=== PATIENT | male | born 1960 | race Caucasian/White ===

== ENCOUNTER 2018-03-30 15:30 | Emergency (ER) | payer OTHER ==
--- NOTE | 2018-03-30 15:56 | EDPHYS ---
Physician Documentation [facility] Name: Trace Jackson Sr Age: 58 yrs Sex: Male : 1960 Arrival Date: 03/30/2018 Time: 15:34 Bed 25 Private MD: None, None ED Physician Donte Christy HPI: 03/30 16:25 This 58 yrs old Male presents to ER via Ambulatory with complaints of Arm kb Swelling. 16:25 The patient or guardian complains of swelling. The complaints affect the left forearm. kb Context: The problem was sustained at the hospital, resulted from iv infiltration during CT. Onset: The symptoms/episode began/occurred yesterday. Treatment prior to arrival includes: no previous treatment. Modifying factors: The symptoms are alleviated by nothing. the symptoms are aggravated by nothing. Associated signs and symptoms: Pertinent positives: swelling, Pertinent negatives: decreased range of motion, deformity, erythema, fever, nausea, numbness, pain, tingling, vomiting, warmth, weakness. Severity of symptoms: At their worst the symptoms were moderate, in the emergency department the symptoms are unchanged. The patient has not experienced similar symptoms in the past. The patient has been recently seen by a physician:. Historical: - Allergies: 15:41 No Known Allergies; aj - Home Meds: 15:41 None [Active]; aj - PMHx: 15:41 prostate cancer; aj - PSHx: 15:41 Hernia repair; aj - Immunization history:: Adult Immunizations up to date. - Social history:: Smoking status: Patient uses tobacco products, smokes one pack cigarettes per day. Patient uses alcohol, on a daily basis. street drugs, marijuana. - Ebola Screening: : Patient negative for fever greater than or equal to 101.5 degrees Fahrenheit, and additional compatible Ebola Virus Disease symptoms Patient denies exposure to infectious person Patient denies travel to an Ebola-affected area in the 21 days before illness onset No symptoms or risks identified at this time. ROS: 16:23 Constitutional: Negative for fever, chills, and weight loss, Cardiovascular: Negative kb for chest pain, palpitations, and edema, Respiratory: Negative for shortness of breath, cough, wheezing, and pleuritic chest pain, Abdomen/GI: Negative for abdominal pain, nausea, vomiting, diarrhea, and constipation, Back: Negative for injury and pain, : Negative for injury, bleeding, discharge, and swelling, Skin: Negative for injury, rash, and discoloration, Neuro: Negative for headache, weakness, numbness, tingling, and seizure. 16:23 MS/extremity: Positive for swelling, of the left arm. Exam: 16:23 Constitutional: This is a well developed, well nourished patient who is awake, alert, kb and in no acute distress. Head/Face: Normocephalic, atraumatic. Chest/axilla: Normal chest wall appearance and motion. Nontender with no deformity. No lesions are appreciated. Cardiovascular: Regular rate and rhythm with a normal S1 and S2. No gallops, murmurs, or rubs. Normal PMI, no JVD. No pulse deficits. Respiratory: Lungs have equal breath sounds bilaterally, clear to auscultation and percussion. No rales, rhonchi or wheezes noted. No increased work of breathing, no retractions or nasal flaring. Abdomen/GI: Soft, non-tender, with normal bowel sounds. No distension or tympany. No guarding or rebound. No evidence of tenderness throughout. Skin: Warm, dry with normal turgor. Normal color with no rashes, no lesions, and no evidence of cellulitis. Neuro: Awake and alert, GCS 15, oriented to person, place, time, and situation. Cranial nerves II-XII grossly intact. Motor strength 5/5 in all extremities. Sensory grossly intact. Cerebellar exam normal. Normal gait. 16:23 Musculoskeletal/extremity: Extremities: grossly normal except: noted in the left arm: swelling, ROM: intact in all extremities, Circulation is intact in all extremities. Sensation intact. Vital Signs: 15:41 BP 136 / 90; Pulse 71; Resp 19; Temp 97.6; Pulse Ox 97% on R/A; Weight 81.65 kg; Height aj 5 ft. 9 in. (175.26 cm); 15:41 Body Mass Index 26.58 (81.65 kg, 175.26 cm) aj MDM: 15:45 Patient medically screened. kb 16:23 Data reviewed: vital signs, nurses notes. Data interpreted: Pulse oximetry: on room air kb is 97 %. Interpretation: normal. Counseling: I had a detailed discussion with the patient and/or guardian regarding: the historical points, exam findings, and any diagnostic results supporting the discharge/admit diagnosis, the need for outpatient follow up, a family practitioner, to return to the emergency department if symptoms worsen or persist or if there are any questions or concerns that arise at home. Administered Medications: No medications were administered Disposition: 17:52 Co-signature as Attending Physician, Donte Christy MD. rn Disposition: 03/30/18 15:55 Discharged to Home. Impression: Left arm swelling s/p iv infiltration. - Condition is Stable. - Discharge Instructions: IV Infiltration, [id number]. - Medication Reconciliation Form, Thank You Letter, Antibiotic Education, Prescription Opioid Use form. - Follow up: Private Physician; When: 2 - 3 days; Reason: Recheck today's complaints, Continuance of care, Re-evaluation by your physician. Follow up: Emergency Department; When: As needed; Reason: Worsening of condition. Signatures: Mary Lou Medrano, SHAKE SPLITTER-C SHAKE SPLITTER-CkMary Gardiner RN Donte Zaldivar MD MD rn Lowrey, Tammy, RN RN tl3 Corrections: (The following items were deleted from the chart) 16:26 15:55 03/30/2018 15:55 Discharged to Home. Impression: Left arm swelling s/p iv tl3 infiltration. Condition is Stable. Forms are Medication Reconciliation Form, Thank You Letter, Antibiotic Education, Prescription Opioid Use. Follow up: Private Physician; When: 2 - 3 days; Reason: Recheck today's complaints, Continuance of care, Re-evaluation by your physician. Follow up: Emergency Department; When: As needed; Reason: Worsening of condition. kb
--- NOTE | 2018-03-30 15:56 | ER ---
Nurse's Notes [facility] Name: Trace Jackson Sr Age: 58 yrs Sex: Male : 1960 Arrival Date: 03/30/2018 Time: 15:34 Bed 25 Private MD: None, None Diagnosis: Left arm swelling s/p iv infiltration Presentation: 03/30 15:39 Presenting complaint: Patient states: Left arm swelling after IV infiltration during CT aj yesterday. Transition of care: patient was not received from another setting of care. Onset of symptoms was March 29, 2018. Risk Assessment: Do you want to hurt yourself or someone else? Patient reports no desire to harm self or others. Initial Sepsis Screen: Does the patient meet any 2 criteria? No. Patient's initial sepsis screen is negative. Does the patient have a suspected source of infection? No. Patient's initial sepsis screen is negative. Care prior to arrival: None. 15:39 Method Of Arrival: Ambulatory aj 15:39 Acuity: FATUMA 4 aj Triage Assessment: 15:41 General: Appears in no apparent distress. comfortable, Behavior is calm, cooperative, aj appropriate for age. Pain: Complains of pain in left arm. Neuro: Level of Consciousness is awake, alert, obeys commands, Oriented to person, place, time, situation, Appropriate for age. Respiratory: Airway is patent Respiratory effort is even, unlabored, Respiratory pattern is regular, symmetrical. Derm: Skin is intact, is healthy with good turgor, Skin is pink, warm \T\ dry. normal. Musculoskeletal: Swelling present in left arm. Historical: - Allergies: 15:41 No Known Allergies; aj - Home Meds: 15:41 None [Active]; aj - PMHx: 15:41 prostate cancer; aj - PSHx: 15:41 Hernia repair; aj - Immunization history:: Adult Immunizations up to date. - Social history:: Smoking status: Patient uses tobacco products, smokes one pack cigarettes per day. Patient uses alcohol, on a daily basis. street drugs, marijuana. - Ebola Screening: : Patient negative for fever greater than or equal to 101.5 degrees Fahrenheit, and additional compatible Ebola Virus Disease symptoms Patient denies exposure to infectious person Patient denies travel to an Ebola-affected area in the 21 days before illness onset No symptoms or risks identified at this time. Vital Signs: 15:41 BP 136 / 90; Pulse 71; Resp 19; Temp 97.6; Pulse Ox 97% on R/A; Weight 81.65 kg; Height aj 5 ft. 9 in. (175.26 cm); 15:41 Body Mass Index 26.58 (81.65 kg, 175.26 cm) aj ED Course: 15:34 Patient arrived in ED. mr 15:35 None, None is Private Physician. mr 15:40 Triage completed. aj 15:41 Arm band placed on right wrist. Patient placed in an exam room. aj 15:45 Mary Lou Medrano FNP-C is [facility]. kb 15:45 Donte Christy MD is Attending Physician. kb Administered Medications: No medications were administered Outcome: 15:55 Discharge ordered by . kb 16:26 Patient left the ED. tl3 Signatures: Mary Lou Medrano FNP-C FNP-Mary Rodarte, Xuan Lambert RN, Tammy, RN RN tl3
== END 2018-03-30 16:26 | disposition home or self-care (01) ==
LOC: ER 15:30
DX: M79.89 Other specified soft tissue disorders (principal); F17.210 Nicotine dependence, cigarettes, uncomplicated; Z85.46 Personal history of malignant neoplasm of prostate
CPT/HCPCS: 99281

== ENCOUNTER 2021-10-23 06:04 | Emergency (ER) | payer OTHER, SELFPAY ==
--- OUTSIDE RECORDS SUMMARY | 2021-10-23 06:08 | XMS REPORT | Continuity of Care Document ---
:1960 Author Organization [facility] t Address [address] [place] [address] [address] [place] [address] Care Team Providers Name Role Phone Unavailable Unavailable Unavailable Problems This patient has no known problems. Allergies, Adverse Reactions, Alerts This patient has no known allergies or adverse reactions. Medications This patient has no known medications. Procedures This patient has no known procedures. Results This patient has no known results.
[2021-10-23] MEDS ORDERED: MORPHINE 4 MG/ML SYR ONE (06:45)
[2021-10-23] MEDS ORDERED: dexAMETHasone 10 MG/ML VIAL ONE (06:45)
[2021-10-23] MEDS ORDERED: ONDANSETRON 4 MG/2 ML VIAL ONE (06:45)
[2021-10-23] MEDS ORDERED: NA CHLORIDE 0.9% 1,000 ML ONE (06:46)
[2021-10-23 06:48] LABS: Absolute Lymphocytes (CBC) 1.7 K/uL (0.7-4.9); Hematocrit 49.1 % (39.6-49.0); Lymphocytes % 19.2 % (15.3-44.8); MPV 7.1 fL (7.6-11.3); RBC Red Blood Cell Count 5.27 M/uL (4.33-5.43)
[2021-10-23 06:57] LABS: Protime INR 0.87
[2021-10-23 07:02] LABS: Potassium 4.4 mmol/L (3.5-5.1)
--- NOTE | 2021-10-23 07:54 | RAD REPORT ---
EXAM DESCRIPTION: CT - Head Brain Wo Cont - 10/23/2021 7:26 am CLINICAL HISTORY: Headache COMPARISON: 2010 TECHNIQUE: Computed axial tomography of the head was obtained. IV contrast was not requested. All CT scans are performed using dose optimization technique as appropriate and may include automated exposure control or mA/KV adjustment according to patient size. FINDINGS: An intracranial bleed is not seen . Several air bubbles within the right cavernous sinus The ventricles are normal in caliber. No significant hypodense areas within the brain visualized No extra-axial fluid collection is noted. Fluid within the sinuses/ mastoids is not seen. Mild to moderate chronic sphenoid and ethmoid sinusit is IMPRESSION: Several air bubbles within the right cavernous sinus. If the patient has had recent IV a ccess this probably is iatrogenic and not significant. Trauma and infection can also result in this a ppearance Mild to moderate chronic sinusitis
--- NOTE | 2021-10-23 07:55 | RAD REPORT ---
EXAM DESCRIPTION: CTHead angio10/23/2021 7:26 am CLINICAL HISTORY: Headache COMPARISON: None TECHNIQUE: CT angiogram of the head was obtained. 3D MIPS reconstruction performed. All CT scans are performed using dose optimization technique as appropriate and may include automated exposure control or mA/KV adjustment according to patient size. FINDINGS: The basilar, internal carotid, anterior cerebral, middle cerebral and posterior cerebral a rteries are normal caliber. An aneurysm is not seen. A significant stenosis is not noted. IMPRESSION: No significant abnormality is displayed
[2021-10-23] MEDS ORDERED: AMLODIPINE 5 MG TAB ONE (08:08)
[2021-10-23] MEDS ORDERED: AMOX/K CLAV 875 MG TAB ONE (08:30)
[2021-10-23] MEDS ORDERED: CEFTRIAXONE 2000 MG/VIAL ONE (08:31)
--- NOTE | 2021-10-23 09:02 | ER ---
Nurse's Notes [facility] Name: Trace Jackson Sr Age: 61 yrs Sex: Male : 1960 Arrival Date: 10/23/2021 Time: 06:09 Bed 2 Private MD: Diagnosis: Headache;Essential (primary) hypertension;Chronic sinusitis, unspecified;Acute sphenoidal sinusitis Presentation: 10/23 06:18 Chief complaint: Patient states: "I've had this headache for 2-3 weeks and I can't get lp1 it to go away with Tylenol or Ibuprofen at home"; Patient reports pain localized to right sabianist and right eye, with intermittent dizziness. Coronavirus screen: At this time, the client does not indicate any symptoms associated with coronavirus-19. Ebola Screen: No symptoms or risks identified at this time. Initial Sepsis Screen: Does the patient meet any 2 criteria? No. Patient's initial sepsis screen is negative. Does the patient have a suspected source of infection? No. Patient's initial sepsis screen is negative. Risk Assessment: Do you want to hurt yourself or someone else? Patient reports no desire to harm self or others. Onset of symptoms was October 23, 2021. 06:18 Method Of Arrival: Ambulatory lp1 06:18 Acuity: FATUMA 3 lp1 Triage Assessment: 06:30 Headache History: Denies prior headaches. General: Appears in no apparent distress. kd3 Behavior is calm, cooperative. Pain: Pain currently is 10 out of 10 on a pain scale. Pain began gradually, Also complains of nausea, inability to work. 06:31 Neuro: Level of Consciousness is awake, alert, obeys commands, Oriented to person, kd3 place, time, situation. Cardiovascular: Patient's skin is warm and dry. Respiratory: Airway is patent Trachea midline Respiratory effort is even, unlabored, Respiratory pattern is regular. Historical: - Allergies: 06:20 No Known Allergies; lp1 - Home Meds: 06:20 None [Active]; lp1 - PMHx: 06:20 Prostate Cancer; lp1 - PSHx: 06:20 Hernia repair; lp1 - Immunization history:: Adult Immunizations up to date. - Social history:: Smoking status: Patient reports the use of cigarette tobacco products, smokes one pack cigarettes per day. - Family history:: not pertinent. - Hospitalizations: : No recent hospitalization is reported. Screenin:30 Abuse screen: Denies threats or abuse. Denies injuries from another. Nutritional kd3 screening: No deficits noted. Tuberculosis screening: No symptoms or risk factors identified. Fall Risk IV access (20 points). Assessment: 06:31 Pain: Complains of pain in headache. kd3 07:30 General: Appears in no apparent distress. comfortable, Behavior is calm, cooperative, ap3 appropriate for age. Neuro: Level of Consciousness is awake, alert, obeys commands, Oriented to person, place, time, situation, Appropriate for age Moves all extremities. Gait is steady, Speech is normal, Facial symmetry appears normal. Cardiovascular: Patient's skin is warm and dry. 07:30 Respiratory: Airway is patent Respiratory effort is even, unlabored, Respiratory ap3 pattern is regular, symmetrical. 07:32 Reassessment: No changes from previously documented assessment. Patient and/or family ap3 updated on plan of care and expected duration. Pain level reassessed. 08:22 Reassessment: No changes from previously documented assessment. Patient and/or family ap3 updated on plan of care and expected duration. Pain level reassessed. Patient is alert, oriented x 3, equal unlabored respirations, skin warm/dry/pink. Vital Signs: 06:18 BP 141 / 108; Pulse 83; Resp 18; Temp 98.2(O); Pulse Ox 98% on R/A; Weight 90.72 kg lp1 (R); Height 5 ft. 9 in. (175.26 cm); Pain 7/10; 07:32 BP 160 / 110; Pulse 78; Pulse Ox 98% on R/A; ap3 08:20 BP 144 / 93; Pulse 72; Pulse Ox 97% on R/A; ap3 06:18 Body Mass Index 29.53 (90.72 kg, 175.26 cm) lp1 Lander Coma Score: 08:12 Eye Response: spontaneous(4). Verbal Response: oriented(5). Motor Response: obeys fercho commands(6). Total: 15. ED Course: 06:09 Patient arrived in ED. ja2 06:15 Donte Christy MD is Attending Physician. rn 06:20 Triage completed. lp1 06:30 Jaclyn Armenta RN is Primary Nurse. kd3 06:30 Patient has correct armband on for positive identification. kd3 06:30 No provider procedures requiring assistance completed. Inserted saline lock: 20 gauge kd3 in right forearm, using aseptic technique. Blood collected. Missed attempt(s): 20 gauge in right antecubital area. 07:08 Attending Physician role handed off by Donte Chritsy MD fercho 07:08 Timothy Chua MD is Attending Physician. fercho 07:28 CT Head Brain wo Cont In Process Unspecified. EDMS 07:[address] In Process Unspecified. EDMS 07:32 ED physician to see patient. ap3 08:21 electronic device monitor on. Pulse ox on. NIBP on. Door closed. Noise minimized. Warm blanket ap3 given. 08:21 Arm band placed on right wrist. ap3 08:40 CT Sinus Wo Cont In Process Unspecified. EDMS 09:02 Scott Padilla DO is Referral Physician. fercho 09:02 John Covington MD is Referral Physician. fercho 09:12 IV discontinued, intact, bleeding controlled, No redness/swelling at site. Pressure ap3 dressing applied. Administered Medications: 06:47 Drug: NS 0.9% 1000 ml Route: IV; Rate: 1000 ml; Site: right forearm; kd3 08:24 Follow up: IV Status: Completed infusion; IV Intake: 1000ml ap3 06:47 Drug: Decadron - Dexamethasone 10 mg Route: IVP; Site: right forearm; kd3 07:12 Follow up: Response: No adverse reaction freire 08:24 Follow up: Response: No adverse reaction ap3 06:47 Drug: morphine 4 mg Route: IVP; Infused Over: 4 mins; Site: right forearm; kd3 07:12 Follow up: Response: No adverse reaction freire 08:24 Follow up: Response: No adverse reaction; Pain is decreased ap3 06:47 Drug: Zofran (Ondansetron) 4 mg Route: IVP; Site: right forearm; kd3 07:12 Follow up: Response: No adverse reaction freire 08:25 Follow up: Response: No adverse reaction ap3 08:03 Drug: Norvasc (amlodipine) 10 mg Route: PO; freire 08:12 Follow up: Response: No adverse reaction freire 08:25 Follow up: Response: No adverse reaction ap3 08:32 Drug: Rocephin (cefTRIAXone) 2 grams Route: IV; Rate: per protocol; Site: right forearm;freire 09:12 Follow up: IV Status: Completed infusion ap3 08:32 Drug: Augmentin (Amoxicillin-Clavulanate) 875 mg Route: PO; freire 08:32 Follow up: Response: No adverse reaction freire 09:12 Follow up: Response: No adverse reaction ap3 Medication: 06:20 VIS not applicable for this client. lp1 Intake: 08:24 IV: 1000ml; Total: 1000ml. ap3 Outcome: 09:02 Discharge ordered by . fercho 09:11 Discharged to home ambulatory. ap3 09:11 Condition: good 09:11 Discharge instructions given to patient, Instructed on discharge instructions, follow up and referral plans. medication usage, Demonstrated understanding of instructions, follow-up care, medications, Prescriptions given X 3. 09:21 Patient left the ED. ap3 Signatures: Dispatcher [employer] EDMS Timothy Chua MD MD cha Nieto, Roman, MD MD rn Pena, Laura, RN RN lp1 Mary Escalona RN RN ap3 China Akers Kyli, RN RN kd3 Mariam Carter RN RN freire
--- NOTE | 2021-10-23 09:03 | EDPHYS ---
Physician Documentation [facility] Name: Trace Jackson Sr Age: 61 yrs Sex: Male : 1960 Arrival Date: 10/23/2021 Time: 06:09 Bed 2 Private MD: ED Physician Timothy Chua HPI: 10/23 06:38 This 61 yrs old Male presents to ER via Ambulatory with complaints of Headache, Worst rn Ever. 06:38 The patient complains of pain to the right eye and right uatsdin. The patient describes rn the headache as aching, throbbing. Onset: The symptoms/episode began/occurred 2 week(s) ago. Associated signs and symptoms: Pertinent negatives: altered mental status, fever, neck stiffness, rash, vision loss, vomiting, weakness, vertigo. Severity of symptoms: At its worst the pain was the "worst in my life", in the emergency department the pain is unchanged. Headache History: Denies prior headaches. The symptoms are alleviated by nothing. the symptoms are aggravated by nothing. The patient has not experienced similar symptoms in the past. The patient has not recently seen a physician. Pt reports headache, new, no hx of headaches, no trauma, no fever. No focal neuro complaints. Has hx of prostate cancer but thinks is cancer free. Reports vision seems blurry, is intermittent, but is supposed to wear glasses. . Historical: - Allergies: 06:20 No Known Allergies; lp1 - Home Meds: 06:20 None [Active]; lp1 - PMHx: 06:20 Prostate Cancer; lp1 - PSHx: 06:20 Hernia repair; lp1 - Immunization history:: Adult Immunizations up to date. - Social history:: Smoking status: Patient reports the use of cigarette tobacco products, smokes one pack cigarettes per day. - Family history:: not pertinent. - Hospitalizations: : No recent hospitalization is reported. ROS: 06:38 Constitutional: Negative for fever, chills, and weight loss, Eyes: Negative for injury, rn pain, redness, and discharge, ENT: Negative for injury, pain, and discharge, Neck: Negative for injury, pain, and swelling, Cardiovascular: Negative for chest pain, palpitations, and edema, Respiratory: Negative for shortness of breath, cough, wheezing, and pleuritic chest pain, Abdomen/GI: Negative for abdominal pain, nausea, vomiting, diarrhea, and constipation, Back: Negative for injury and pain, MS/Extremity: Negative for injury and deformity, Skin: Negative for injury, rash, and discoloration, Neuro: Negative for weakness, numbness, tingling, and seizure. Exam: 06:38 Constitutional: This is a well developed, well nourished patient who is awake, alert, rn and in no acute distress. Ambulatory to room without difficulty or assistance. Head/Face: Normocephalic, atraumatic. Eyes: Pupils equal round and reactive to light, extra-ocular motions intact. ENT: MMM Neck: Trachea midline, no thyromegaly or masses palpated, and no cervical lymphadenopathy. Supple, full range of motion without nuchal rigidity, or vertebral point tenderness. No Meningismus. Cardiovascular: Regular rate and rhythm. No pulse deficits. Respiratory: No increased work of breathing, no retractions or nasal flaring. Abdomen/GI: Soft, non-tender, with normal bowel sounds. No distension or tympany. No guarding or rebound. No evidence of tenderness throughout. Skin: Warm, dry MS/ Extremity: Pulses equal, no cyanosis. Neuro: Awake and alert, GCS 15, oriented to person, place, time, and situation. Cranial nerves II-XII grossly intact. Motor strength 5/5 in all extremities. Sensory grossly intact. Cerebellar exam normal. Normal gait. Vital Signs: 06:18 BP 141 / 108; Pulse 83; Resp 18; Temp 98.2(O); Pulse Ox 98% on R/A; Weight 90.72 kg lp1 (R); Height 5 ft. 9 in. (175.26 cm); Pain 7/10; 07:32 BP 160 / 110; Pulse 78; Pulse Ox 98% on R/A; ap3 08:20 BP 144 / 93; Pulse 72; Pulse Ox 97% on R/A; ap3 06:18 Body Mass Index 29.53 (90.72 kg, 175.26 cm) lp1 [place] Coma Score: 08:12 Eye Response: spontaneous(4). Verbal Response: oriented(5). Motor Response: obeys fercho commands(6). Total: 15. MDM: 06:15 Patient medically screened. rn 08:12 Data reviewed: vital signs, nurses notes, lab test result(s), radiologic studies, CT fercho scan. Data interpreted: pvc monitor: rate is 78 beats/min, rhythm is regular, Pulse oximetry: on room air is 98 %. Counseling: I had a detailed discussion with the patient and/or guardian regarding: the historical points, exam findings, and any diagnostic results supporting the discharge/admit diagnosis, lab results, radiology results, the need for outpatient follow up, for definitive care, an ENT specialist, a neurologist. 10/23 06:34 Order name: CBC with Diff; Complete Time: 07:33 rn 10/23 06:34 Order name: Basic Metabolic Panel; Complete Time: 07:33 rn 10/23 06:34 Order name: Protime (+inr); Complete Time: 07:33 rn 10/23 06:34 Order name: Ptt, Activated; Complete Time: 07:33 rn 10/23 06:34 Order name: ESR; Complete Time: 07:33 rn 10/23 06:34 Order name: CT Head Brain wo Cont; Complete Time: 08:06 rn 10/23 06:34 Order name: Head Angio CT; Complete Time: 08:06 rn 10/23 08:10 Order name: CT Sinus Wo Cont fercho 10/23 06:34 Order name: IV Start; Complete Time: 06:35 rn Administered Medications: 06:47 Drug: NS 0.9% 1000 ml Route: IV; Rate: 1000 ml; Site: right forearm; kd3 08:24 Follow up: IV Status: Completed infusion; IV Intake: 1000ml ap3 06:47 Drug: Decadron - Dexamethasone 10 mg Route: IVP; Site: right forearm; kd3 07:12 Follow up: Response: No adverse reaction freire 08:24 Follow up: Response: No adverse reaction ap3 06:47 Drug: morphine 4 mg Route: IVP; Infused Over: 4 mins; Site: right forearm; kd3 07:12 Follow up: Response: No adverse reaction freire 08:24 Follow up: Response: No adverse reaction; Pain is decreased ap3 06:47 Drug: Zofran (Ondansetron) 4 mg Route: IVP; Site: right forearm; kd3 07:12 Follow up: Response: No adverse reaction freire 08:25 Follow up: Response: No adverse reaction ap3 08:03 Drug: Norvasc (amlodipine) 10 mg Route: PO; freire 08:12 Follow up: Response: No adverse reaction freire 08:25 Follow up: Response: No adverse reaction ap3 08:32 Drug: Rocephin (cefTRIAXone) 2 grams Route: IV; Rate: per protocol; Site: right forearm;freire 09:12 Follow up: IV Status: Completed infusion ap3 08:32 Drug: Augmentin (Amoxicillin-Clavulanate) 875 mg Route: PO; freire 08:32 Follow up: Response: No adverse reaction freire 09:12 Follow up: Response: No adverse reaction ap3 Disposition Summary: 10/23/21 09:02 Discharge Ordered Location: Home fercho Problem: new fercho Symptoms: have improved fercho Condition: Stable fercho Diagnosis - Headache fercho - Essential (primary) hypertension fercho - Chronic sinusitis, unspecified fercho - Acute sphenoidal sinusitis fercho Followup: fercho - With: Private Physician - When: 2 - 3 days - Reason: Recheck today's complaints, Continuance of care, Re-evaluation by your physician Followup: fercho - With: - When: 2 - 3 days - Reason: Recheck today's complaints, Continuance of care, Re-evaluation by your physician Followup: fercho - With: - When: 2 - 3 days - Reason: Recheck today's complaints, Re-evaluation by your physician Discharge Instructions: - Discharge Summary Sheet fercho - Hypertension, Adult fercho - Hypertension, Adult, [id number] fercho - How to Take Your Blood Pressure, [id number] fercho - Sinusitis, Adult fercho - Sinusitis, Adult, [id number] fercho - Managing Your Hypertension fercho Forms: - Medication Reconciliation Form fercho - Thank You Letter fercho - Antibiotic Education fercho - Prescription Opioid Use fercho - Work release form aa5 Prescriptions: - Fioricet with Codeine 67-722-40-30 mg Oral capsule - take 1 capsule by ORAL route every 4 hours as needed not to exceed 6 capsules fercho per 24hrs; 20 capsule; Refills: 0, Product Selection Permitted - Norvasc 5 mg Oral Tablet - take 1 tablet by ORAL route once daily; 20 tablet; Refills: 0, Product fercho Selection Permitted - Augmentin 875-125 mg Oral Tablet - take 1 tablet by ORAL route every 12 hours for 14 days; 28 tablet; Refills: 0, fercho Product Selection Permitted Signatures: Dispatcher [employer] Timothy Wray MD MD cha Nieto, Roman, MD MD rn Pena, Lillie, RN RN lp1 Jaclyn Armenta, RN RN kd3 Mariam Carter RN RN freire Mary Escalona RN ap3
--- NOTE | 2021-10-23 09:08 | RAD REPORT ---
EXAM DESCRIPTION: CTSinus Wo Cont10/23/2021 8:38 am CLINICAL HISTORY: Sinus pain COMPARISON: Head CT October 23, 2021 TECHNIQUE: Computed axial tomography of the sinuses were obtained with coronal and sagittal reconstr uction. All CT scans are performed using dose optimization technique as appropriate and may include automated exposure control or mA/KV adjustment according to patient size. FINDINGS: Mild mucoperiosteal thickening involves maxillary and frontal sinuses. Mild to moderate mucoperiosteal thickening involves the sphenoid and ethmoid sinuses. The ostiomeatal complexes are occluded bilaterally secondary to the mucoperiosteal thickening. The mastoids are clear. Luz bullosa. Nasal septum deviated towards the right The air bubbles within the right cavernous sinus have resolved IMPRESSION: 1. Mild to moderate chronic sinusitis 2. Occluded ostiomeatal complexes.
[2021-10-23 09:28] VITALS: TEMP 98.2
[2021-10-23 09:31] VITALS: BP 144/93; O2SAT 97
== END 2021-10-23 09:21 | disposition home or self-care (01) ==
LOC: ER 06:04
DX: R51.9 Headache, unspecified (principal); I10 Essential (primary) hypertension; J32.3 Chronic sphenoidal sinusitis; F17.210 Nicotine dependence, cigarettes, uncomplicated
CPT/HCPCS: 36415; 70450; 70486; 70496; 80048; 85025; 85610; 85652; 85730; 96361; 96365; 96375; 99284; J0696; J1100; J2405; J7030; Q9967